=== PATIENT | female | born 1995 | race Two or more races ===

== ENCOUNTER → 2018-05-06 | Outpatient (CLI) | payer MEDICAID ==
[~2018-05-06] MED LIST: BIRTH CONTROL
== END | disposition home or self-care (01) ==
LOC: CFH 15:51
PROVIDERS: ATTEND Family Medicine
DX: R31.9 Hematuria, unspecified (principal); Z97.5 Presence of (intrauterine) contraceptive device
CPT/HCPCS: 74176